=== PATIENT | female | born 1990 | race Caucasian/White ===

== ENCOUNTER 2024-03-29 18:41 | Emergency (ER) | payer OTHER, SELFPAY ==
[2024-03-29 18:55] VITALS: BP 117/70; PULSE 76; RESP 18; TEMP 36.8; O2SAT 100
--- NOTE | 2024-03-29 19:03 | ED.URI ---
HPI - URI/Sore Throat General Chief Complaint: Upper Respiratory Infection Stated Complaint: Sinus Time Seen by Provider: 03/29/24 19:03 Source: patient, RN notes reviewed and old records reviewed Mode of arrival: ambulatory Limitations: no limitations History of Present Illness HPI Narrative: Patient presents with complaints of sinus pain and congestion. She reports that symptoms began approximately 2 weeks ago after leaf blowing. She reports that she has been taking allergy medications and using Flonase hoping to improve symptoms. She reports that over the past couple days she has noticed that the right side of her face is tender. Reports purulent nasal drainage this morning. Denies any fever, does report that she is more tired than normal. She denies any injury or trauma. Related Data Allergies Allergy/AdvReac Type Severity Reaction Status Date / Time No Known Allergies Allergy Verified 03/29/24 19:08 Review of Systems Review of Systems: All systems reviewed & are unremarkable except as noted in HPI and below Constitutional: Constitutional: Reports no additional constitutional complaints ENT: Reports system reviewed and no additional complaints, except as documented, Reports as per HPI, Reports nasal congestion, Reports nasal discharge, Reports nasal obstruction, Reports sinus pain and Reports sinus pressure Cardiovascular: Cardiovascular: Reports as per HPI and Reports no additional cardiovascular complaints Respiratory: Respiratory: Reports as per HPI and Reports no additional respiratory complaints Gastrointestinal: Gastrointestinal: Reports no additional gastrointestinal complaints PMFSH Comments At the time of my signature, I reviewed and agree with the nursing past medical, surgical, social, and family history. There is no relevant family history pertinent to the patient complaint. Exam Const: General: cooperative, no acute distress, alert and awake Orientation/consciousness: oriented to person, oriented to place and oriented to time HENMT: Head: normal to inspection Ears: TM abnormal dull and with fluid behind the TM Face/Nose/Sinus: sinus tenderness Mouth: Yes moist mucous membranes Throat: posterior oropharynx abnormal erythema and postnasal drainage Resp: Effort & Inspection: normal respiratory effort and able to speak in complete sentences Auscultation: clear to auscultation bilaterally, no crackles, no rales, no rhonchi and no wheezes Cardio: Palpation: normal PMI Rate: regular rate Rhythm: regular rhythm Heart sounds: S1 normal heart sound present and S2 normal heart sound present Neuro: General: oriented to person, oriented to place and oriented to time Cranial nerves: Yes CN's II-XII intact bilaterally Psych: Appearance: grossly normal Thought process: Normal thought process present Insight: Good insight present (Psych) Judgement: Good judgement present (Psych) Course Course Level of Care: Express Care Visit Vital Signs Vital signs: Vital Signs Temperature 98.3 F 03/29/24 18:55 Pulse Rate 76 03/29/24 18:55 Respiratory Rate 18 03/29/24 18:55 Blood Pressure 117/70 03/29/24 18:55 Pulse Oximetry 100 03/29/24 18:55 Oxygen Delivery Room Air 03/29/24 18:55 Temperature 98.3 F 03/29/24 18:55 Pulse Rate 76 03/29/24 18:55 Respiratory Rate 18 03/29/24 18:55 Blood Pressure 117/70 03/29/24 18:55 Pulse Oximetry 100 03/29/24 18:55 Oxygen Delivery Room Air 03/29/24 18:55 Reviewed MDM - URI/Sore Throat MDM Narrative Medical decision making narrative: History and exam consistent with sinusitis. Treat is same. Nontoxic appearing patient, stable for discharge home with p.o. antibiotics. Discharge instructions reviewed with patient, as well as provided in writing per nursing staff. The instructions also include specific and strict return/GO TO THE ER as well as f/u information. All questions have been answered, and the patient deny any further questions with discharge and discharge plan. Some parts of this dictation were generated by voice recognition software and may contain typographical and/or grammatical inaccuracies. Differential Diagnosis Differential diagnosis: Likely upper respiratory infection, otitis media, sinusitis, viral infection, bronchitis and pharyngitis Medical Records Attestation: I reviewed the patient's medical records. Discharge Plan Discharge Clinical Impression: Sinusitis Qualifiers: Sinusitis location: unspecified location Chronicity: acute Recurrence: not specified as recurrent Qualified Code(s): J01.90 - Acute sinusitis, unspecified Patient Disposition: Home, Self-Care Condition: Stable Instructions: Antibiotic Form, Sinusitis (ED) Additional Instructions: Take medications as prescribed. Tylenol and/or ibuprofen per package instructions as needed for pain. Recommend Flonase to help with drainage. Follow-up with primary care provider. Emergency department for new or worse symptoms Patient Language: Armenian Prescriptions: New amoxicillin-pot clavulanate 875-125 mg tablet 1 tablet PO Q12H Qty: 14 0RF fluconazole [Diflucan] 200 mg tablet 200 mg PO DAILY PRN (Reason: yeast infection) Qty: 2 0RF Rx Instructions: Take 1 tablet at onset of symptoms, may repeat dose in 48-72 hours if symptoms have not subsided amoxicillin-pot clavulanate 875-125 mg tablet 1 tablet PO Q12H Qty: 14 0RF fluconazole 200 mg tablet 200 mg PO DAILY PRN (Reason: Yeast infection) Qty: 2 0RF Rx Instructions: Take 1 tablet at onset of symptoms. May repeat the dose if symptoms persist after 48-72 hours Follow-up/Referrals: Primo Escamilla MD [Primary Care Provider] - 2 Weeks Time of Disposition: 19:12
== END 2024-03-29 19:20 | disposition home or self-care (01) ==
PROVIDERS: Emergency Provider Nurse Practitioner Family; PCP Family Medicine
DX: J01.00 Acute maxillary sinusitis, unspecified (principal)
CPT/HCPCS: 99203; G0463

== ENCOUNTER 2025-03-19 08:23 | Outpatient (CLI) | payer OTHER, SELFPAY ==
--- OUTSIDE RECORDS SUMMARY | 2025-03-19 08:40 | XMS_ITS | Clinical Summary ---
Author Organization [facility] mike [facility] Address [address] [place] [address] Care Team Providers Care Telecom Billing Analyst Name Role Phone Primo Escamilla MD Primary Care Provider Allergies No known active allergies Medications multivitamin (DAILY-VELIA) tablet Take 1 Tablet by mouth daily. Active loratadine (CLARITIN) 10 mg tablet Take 10 mg by mouth daily. Active Active Problems Problem Noted Date Diagnosed Date Vitamin B12 deficiency (non anemic) 11/04/2020 Neutropenia 07/13/2020 Family History Medical History Relation Name Comments High Cholesterol Mother Hypertension Mother Cancer Sister Lymphoma Sister Relation Name Status Comments Brother Alive Father Alive Mother Alive Sister Alive Social History Tobacco Use Types Packs/Day Years Used Date Smoking Tobacco: Former Smokeless Tobacco: Never Comments:quit 5 yrs ago Alcohol Use Standard Drinks/Week Comments Yes 0 (1 standard drink = 0.6 oz pur e alcohol) occasional Comments No Sex and Gender Information Value Date Recorded Sex Assigned at Not on file Legal Sex Female 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 Gender Identity Not on file Sexual Orientation Not on file Last Filed Vital Signs Vital Sign Reading Time Taken Comments Blood Pressure 115/79 03/08/2021 8:22 AM CDT Pulse 62 03/08/2021 8:22 AM CDT Temperature 37 C (98.6 F) 03/08/2021 8:22 AM CDT Respiratory Rate - - Oxygen Saturation 98% 03/08/2021 8:22 AM CDT Inhaled Oxygen Concentration - - Weight 71.7 kg (158 lb 1.6 oz) 03/08/2021 8:22 A M CDT Height 160 cm (5' 3) 03/08/2021 8:22 AM CDT Body Mass Index 28.01 03/08/2021 8:22 AM CDT Plan of Treatment Health Maintenance Due Date Last Done Comments DTAP/TDAP/TD VACCINES (1 - Tdap) 2009 HEPATITIS B VACCINES (1 of 3 - 19+ 3-dose series) 02/04 HPV/Cotest (21-29) 2011 HPV VACCINES (1 - 3-dose SCDM series) 2017 CERVICAL CANCER SCREENING 02/28/2020 HPV/Cotest (30-65) 02/28/2020 PAP SMEAR 02/28/2020 INFLUENZA VACCINE (#1) 2025 Insurance OPTIONS PPO [id number] Care Teams Telecom Billing Analyst Relationship Specialty Start Date End Date Primo Escamilla MD [address] [place] [address] PCP - General Family Practice 07/13/20
[2025-03-19 13:06] LABS: Cholesterol 229 mg/dL (0-200); HDL Direct 72 mg/dL; Triglycerides 42 mg/dL (<150)
[2025-03-19 13:20] LABS: Free T4 Free Thyroxine 1.10 ng/dL (0.78-2.19)
[2025-03-19 13:44] LABS: Thyroid Stimulating Hormone 0.818 uIU/mL (0.465-4.680)
== END 2025-03-19 08:24 | disposition home or self-care (01) ==
LOC: ANHGOSHLAB 08:24
PROVIDERS: PCP Family Medicine; Visit Provider Family Medicine
DX: Z13.220 Encounter for screening for lipoid disorders (principal); R79.89 Other specified abnormal findings of blood chemistry
CPT/HCPCS: 36415; 80061; 83520; 84439; 84443; 84445; 86800

== ENCOUNTER 2025-05-06 09:23 | Outpatient (CLI) | payer OTHER, SELFPAY ==
--- OUTSIDE RECORDS SUMMARY | 2025-05-06 09:59 | XMS_ITS | Clinical Summary ---
Author Organization [facility] Address [address] [place] [address] Care Team Providers Care Regional Controller Name Role Phone Primo Escamilla MD Primary Care Provider [phone] Encounters Date Type Department Care Team Description 04/21/2025 Results Follow-Up [address] [id number] Elizabeth Bob MA T-SPOT.TB Blood, Varicella Zoster IgG antibody Blood 04/16/2025 1:15 PM METEOROLOGY PROFESSOR Lab [facility] [address] [place] [phone] Pre-employment health screening examination 04/16/2025 Orders Only [address] [phone] Elizabeth Bob MA Pre-employment health screening examination (Primary Dx) from Last 3 Months Social History Tobacco Use Types Packs/Day Years Used Date Smoking Tobacco: Never Assessed Comments Unknown Sex and Gender Information Value Date Recorded Sex Assigned at Not on file Legal Sex Female 12:47 PM METEOROLOGY PROFESSOR Gender Identity Not on file Sexual Orientation Not on file Plan of Treatment Health Maintenance Due Date Last Done Comments Cervical Cancer Screening 1990 Depression Screening 1990 Hepatitis C Screening 1990 Varicella Vaccines (1 of 2 - 13+ 2-dose series) 2003 Hepatitis B Screening 02/28/2008 Regular Well Visit/Exam 18-64 02/28/2008 HPV Vaccines (1 - 3-dose SCD M series) 2017 Covid-19 Vaccine (2024-2 6 season) 2025 04/09/2021, 06/14/2020, 05/24/2020 DTaP/Tdap/Td Vaccine (2 - Td or Tdap) 01/13/2032 01/12/2022 Influenza Vaccine Completed 03/17/2025, 03/31/2023, 03/17/2022 Pneumococcal vaccine <65 Aged Out No longer eligible based on patient's age to complete this topic Procedures Procedure Name Priority Date/Time Associated Diagnosis Comments VARICELLA ZOSTER ANTIBODY, IGG Routine 04/16/2025 1:25 PM METEOROLOGY PROFESSOR Pre-employment health screening examination T-SPOT.TB Routine 04/16/2025 1:25 PM METEOROLOGY PROFESSOR Pre-employment health screening examination from Last 3 Months Results * T-SPOT.TB Blood (04/16/2025 1:25 PM METEOROLOGY PROFESSOR) [facility] T-SPOT.TB Negative SeeBel Comment: Normal Value: Negative A negative test result does not exclude the possibility of exposure to or infection with Mycobacterium tuberculosis (M. tuberculosis). Patients with recent exposure to TB infected individuals exhibiting a negative T-SPOT.TB result should be considered for retesting within 6 weeks or if other relevant clinical symptoms indicate. Results from T-SPOT.TB testing must be used in conjunction with each individual's epidemiological history, current medical status, and results of other diagnostic evaluations. The T-SPOT.TB test is qualitative and results are reported as positive, borderline or negative, given that the test controls perform as expected. In line with the Centers for Disease Control and Prevention's 2010 recommendation to report quantitative measurements alongside the qualitative result, the laboratory provides spot counts for informational purposes only. The T-SPOT.TB test should not be interpreted as a quantitative test. T-SPOT.TB Panel A Spot Count 0 AUGIE T-SPOT.TB Panel B Spot Count 1 AUGIE T-SPOT.TB Negative Control Passed AUGIE T-SPOT.TB Positive Control Passed AUGIE Comment: Test Performed at: [facility] [address] [place] [phone] STEPHANY DAMON,PHD Blood 04/16/2025 1:25 PM METEOROLOGY PROFESSOR 04/16/2025 2:00 PM METEOROLOGY PROFESSOR Narrative [facility] 04/18/2025 3:38 PM METEOROLOGY PROFESSOR Bill to [place] [phone] Patient is employed by/enrolled at:->[facility] Jake Ambrose MD LAB MICROBIOLOGY - GENERAL OR DERABLES Final Result Performing Organization Address City/[facility] Co de Phone Number [address] [address] * Varicella Zoster IgG antibody Blood (04/16/2025 1:25 PM METEOROLOGY PROFESSOR) VZV IgG Reactive Reactive Comment: Reactive: Results suggest response to immunization or prior exposure to the virus. Testing performed by: [facility], [address] [place] [address]., [id number] Blood 04/16/2025 1:25 PM METEOROLOGY PROFESSOR 04/16/2025 6:08 PM METEOROLOGY PROFESSOR Narrative [facility] 04/17/2025 11:03 AM METEOROLOGY PROFESSOR [place] [phone]. Patient is employed by/enrolled at:->[facility] Jake Ambrose MD LAB MICROBIOLOGY - GENERAL OR DERABLES Final Result Performing Organization Address [facility] de Phone Number [address] [address] from Last 3 Months Insurance [facility] [place] Care Teams Regional Controller Relationship Specialty Start Date End Date Primo Escamilla MD [address] [place], [place] [id number] PCP - General Family Medicine 04/16/25
--- OUTSIDE RECORDS SUMMARY | 2025-05-06 09:59 | XMS_ITS | Clinical Summary ---
[facility] [place] [facility] Address [address] [place] [address] Care Team Providers Care Physical Medicine Specialist Name Role Phone Primo Escamilla MD Primary Care Provider [phone] Allergies No known active allergies Medications multivitamin [...] on file Legal Sex Female 9:55 AM CDS SALES ADVISOR Gender Identity Not on file Sexual Orientation [...] INFLUENZA VACCINE (#1) 2025 Insurance OPTIONS PPO [id number] Care Teams Physical Medicine Specialist Relationship Specialty Start Date End Date Primo Escamilla MD [address] [place] [phone] PCP - General Family Practice 07/13/20
--- OUTSIDE RECORDS SUMMARY | 2025-05-06 09:59 | XMS_ITS | Encounter Summary ---
Author Organization [facility] Healthcare Address [address] [place] [address] Care Team Providers Care Tester Armature Or Fields Name Role Phone Primo Escamilla MD Primary Care Provider [phone] Encounter Details Date Type Department Care Team (Latest Contact Info) Description 04/21/2025 Results [facility]-Up [facility] [address] [address] Elizabeth Bob MA T-SPOT.TB Blood, Varicella Zoster IgG antibody Blood Social History Tobacco Use Types Packs/Day Years Used Date Smoking Tobacco: Never Assessed Comments Unknown Sex and Gender Information Value Date Recorded Sex Assigned at Not on file 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
== END 2025-05-06 09:24 | disposition home or self-care (01) ==
LOC: ANHGOSHLAB 09:25
PROVIDERS: PCP Family Medicine; Visit Provider Student in an Organized Health Care Education/Training Program
DX: N91.2 Amenorrhea, unspecified (principal)
CPT/HCPCS: 36415; 84702

== ENCOUNTER 2025-05-08 08:29 | Outpatient (CLI) | payer OTHER, SELFPAY ==
--- OUTSIDE RECORDS SUMMARY | 2025-05-08 08:43 | XMS_ITS | Encounter Summary ---
Author Organization [facility] Healthcare Address [address] [place] [address] Care Team Providers Care Solution Sales Senior Executive Name Role Phone Primo Escamilla MD Primary Care Provider [phone] Encounter Details Date Type Department Care Team (Latest Contact Info) Description 04/21/2025 Results [facility] [address] [address] Elizabeth Bob MA T-SPOT.TB Blood, Varicella Zoster IgG antibody Blood Social History Tobacco Use Types Packs/Day Years Used Date Smoking Tobacco: Never Assessed Comments Unknown Sex and Gender Information Value Date Recorded Sex Assigned at Not on file Legal Sex Female 12:47 PM 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
--- OUTSIDE RECORDS SUMMARY | 2025-05-08 08:43 | XMS_ITS | Clinical Summary ---
Author Organization [facility] mike [facility] Address [address] [place] [address] Care Team Providers Care Harvest Supervisor Name Role Phone Primo Escamilla MD Primary [...] on file Legal Sex Female 9:55 AM SOLUTION COORDINATOR Gender Identity Not on file Sexual Orientation [...] INFLUENZA VACCINE (#1) 2025 Insurance OPTIONS PPO [id number] Care Teams Harvest Supervisor Relationship Specialty Start Date End Date Primo Escamilla MD [address] [place] [phone] PCP - General Family Practice 07/13/20
--- OUTSIDE RECORDS SUMMARY | 2025-05-08 08:43 | XMS_ITS | Clinical Summary ---
Author Organization [facility] Address [address] [place] [address] Care Team Providers Care Filler Sifter Helper Name Role Phone Primo Escamilla MD Primary Care Provider [phone] Encounters Date Type Department Care Team Description 04/21/2025 Results Follow-Up [address] [id number] Elizabeth Bob MA T-SPOT.TB Blood, Varicella Zoster IgG antibody Blood 04/16/2025 1:15 PM REGIONAL MARKETING MANAGER Lab [facility] [address] [place] [phone] Pre-employment health screening examination 04/16/2025 Orders Only [address] [id number] Elizabeth Bob MA Pre-employment health screening examination (Primary Dx) from Last 3 Months Social History Tobacco Use Types Packs/Day Years Used Date Smoking Tobacco: Never Assessed Comments Unknown Sex and Gender Information Value Date Recorded Sex Assigned at Not on file Legal Sex Female 12:47 PM REGIONAL MARKETING MANAGER Gender Identity Not on file Sexual [...] ZOSTER ANTIBODY, IGG Routine 04/16/2025 1:25 PM REGIONAL MARKETING MANAGER Pre-employment health screening examination T-SPOT.TB Routine 04/16/2025 1:25 PM REGIONAL MARKETING MANAGER Pre-employment health screening examination from Last 3 Months Results * T-SPOT.TB Blood (04/16/2025 1:25 PM REGIONAL MARKETING MANAGER) [facility] T-SPOT.TB Negative SeeBel Comment: Normal Value: Negative [...] Control Passed AUGIE Comment: Test Performed at: [facility], [employer] [address] [place] [phone] STEPHANY DAMON,PHD Blood 04/16/2025 1:25 PM REGIONAL MARKETING MANAGER 04/16/2025 2:00 PM REGIONAL MARKETING MANAGER Narrative [facility] 04/18/2025 3:38 PM REGIONAL MARKETING MANAGER [place] [phone] Patient is employed by/enrolled at:->[facility] Jake Ambrose MD LAB MICROBIOLOGY - GENERAL OR DERABLES Final Result Performing Organization Address City/[facility] Co de Phone Number [address] [address] * Varicella Zoster IgG antibody Blood (04/16/2025 1:25 PM REGIONAL MARKETING MANAGER) VZV IgG Reactive Reactive Comment: Reactive: Results suggest response to immunization or prior exposure to the virus. Testing performed by: [facility], [address] [place] [address]., [id number] Blood 04/16/2025 1:25 PM REGIONAL MARKETING MANAGER 04/16/2025 6:08 PM REGIONAL MARKETING MANAGER Narrative [facility] 04/17/2025 11:03 AM REGIONAL MARKETING MANAGER [address] [place] [phone]. Patient is employed by/enrolled at:->[facility] Jake Ambrose MD LAB MICROBIOLOGY - GENERAL OR DERABLES Final Result Performing Organization Address [facility] de Phone Number [address] [address] from Last 3 Months Insurance [facility] [place] Care Teams Filler Sifter Helper Relationship Specialty Start Date End Date Primo Escamilla MD [address] [place] [place], [place] [phone] PCP - General Family Medicine 04/16/25
== END 2025-05-08 08:30 | disposition home or self-care (01) ==
LOC: ANHGOSHLAB 08:29
PROVIDERS: PCP Family Medicine; Visit Provider Student in an Organized Health Care Education/Training Program
DX: N91.2 Amenorrhea, unspecified (principal)
CPT/HCPCS: 36415; 84702

== ENCOUNTER 2025-05-22 12:44 | Outpatient (CLI) | payer OTHER, SELFPAY ==
--- OUTSIDE RECORDS SUMMARY | 2025-05-22 13:34 | XMS_ITS | Clinical Summary ---
Author Organization [place] [facility] mike [facility] Address [address] [place] [place] [address] Care Team Providers Care Supervisor Bleach Plant Name Role Phone Primo Escamilla MD Primary [...] on file Legal Sex Female 9:[address] Gender Identity Not on file Sexual Orientation [...] 19+ 3-dose series) 02/04 HPV/Cotest (21-29) 2011 CERVICAL CANCER SCREENING 02/28/2020 HPV/Cotest (30-65) 02/28/2020 PAP SMEAR 02/28/2020 INFLUENZA VACCINE (#1) 2025 HPV VACCINES (No Doses Required) Completed Insurance OPTIONS PPO [id number] Care Teams Supervisor Bleach Plant Relationship Specialty Start Date End Date Primo Escamilla MD [address] [place] [address] PCP - General Family Practice 07/13/20
--- OUTSIDE RECORDS SUMMARY | 2025-05-22 13:34 | XMS_ITS | Encounter Summary ---
Author Organization [facility] Healthcare Address [address] [place] [address] Care Team Providers Care Floor Finisher Name Role Phone Primo Escamilla MD Primary Care Provider [phone] Encounter Details Date Type Department Care Team (Latest Contact Info) Description 04/21/2025 Results [facility]-Up [facility] [address] [address] Elizabeth Bob MA T-SPOT.TB Blood, Varicella Zoster IgG antibody Blood Social History Tobacco Use Types Packs/Day Years Used Date Smoking Tobacco: Never Assessed Comments Unknown Sex and Gender Information Value Date Recorded Sex Assigned at Not on file Legal Sex Female 12:47 PM DEPUTY COMMISSIONER Gender Identity Not on file Sexual Orientation Not on file documented as of this encounter Plan of Treatment Not on file documented as of this encounter Visit Diagnoses Not on filedocumented in this encounter Care Teams Floor Finisher Relationship Specialty Start Date End Date Primo Escamilla MD [address] [place] [address] PCP - General Family Medicine 04/16/25 documented as of this encounter
--- OUTSIDE RECORDS SUMMARY | 2025-05-22 13:34 | XMS_ITS | Clinical Summary ---
Author Organization [facility] Address [address] [place] [id number] Care Team Providers Care Lapel Baster Name Role Phone Primo Escamilla MD Primary Care Provider [phone] Encounters Date Type Department Care Team Description 04/21/2025 Results Follow-Up [address] [phone] Elizabeth Bob MA T-SPOT.TB Blood, Varicella Zoster IgG antibody Blood 04/16/2025 1:15 PM DIVISION COMMANDER Lab [facility] [address] [place] [phone] Pre-employment health screening examination 04/16/2025 Orders Only [address] [id number] Elizabeth Bob MA Pre-employment health screening examination (Primary Dx) from Last 3 Months Social History Tobacco Use Types Packs/Day Years Used Date Smoking Tobacco: Never Assessed Comments Unknown Sex and Gender Information Value Date Recorded Sex Assigned at Not on file Legal Sex Female 12:47 PM DIVISION COMMANDER Gender Identity Not on file Sexual Orientation [...] ZOSTER ANTIBODY, IGG Routine 04/16/2025 1:25 PM DIVISION COMMANDER Pre-employment health screening examination T-SPOT.TB Routine 04/16/2025 1:25 PM DIVISION COMMANDER Pre-employment health screening examination from Last 3 Months Results * T-SPOT.TB Blood (04/16/2025 1:25 PM DIVISION COMMANDER) [facility] T-SPOT.TB Negative SeeBel Comment: Normal Value: Negative [...] Control Passed AUGIE Comment: Test Performed at: [facility], [place] [address] [place] [phone] STEPHANY DAMON,PHD Blood 04/16/2025 1:25 PM DIVISION COMMANDER 04/16/2025 2:00 PM DIVISION COMMANDER Narrative [facility] 04/18/2025 3:38 PM DIVISION COMMANDER Bill to [place] [id number] Patient is employed by/enrolled at:->[facility] Jake Ambrose MD LAB MICROBIOLOGY - GENERAL OR DERABLES Final Result Performing Organization Address City/[facility] Co de Phone Number [address] [address] * Varicella Zoster IgG antibody Blood (04/16/2025 1:25 PM DIVISION COMMANDER) [facility] IgG Reactive Reactive Comment: Reactive: Results suggest response to immunization or prior exposure to the virus. Testing performed by: [facility], [address] [place] [address]., [id number] Blood 04/16/2025 1:25 PM DIVISION COMMANDER 04/16/2025 6:08 PM DIVISION COMMANDER Narrative [facility] 04/17/2025 11:03 AM DIVISION COMMANDER Bill to [place] [address]. Patient is employed by/enrolled at:->[facility] Jake Ambrose MD LAB MICROBIOLOGY - GENERAL OR DERABLES Final Result Performing Organization Address [facility] de Phone Number [address] [address] from Last [address] [facility] [place] [place] Care Teams Lapel Baster Relationship Specialty Start Date End Date Primo Escamilla MD [address] [place], [place] [phone] PCP - General Family Medicine 04/16/25
[2025-05-22 19:11] LABS: Beta HCG Quantitative 10.31 mIU/ML
== END 2025-05-22 12:45 | disposition home or self-care (01) ==
LOC: ANHGOSHLAB 12:45
PROVIDERS: PCP Family Medicine; Visit Provider Student in an Organized Health Care Education/Training Program
DX: O02.1 Missed abortion (principal)
CPT/HCPCS: 36415; 84702